=== PATIENT | female | born 1960 | race Caucasian/White ===

== ENCOUNTER 2018-11-14 07:37 | Day surgery (SDC) | payer OTHER ==
[2018-11-13 15:22] VITALS: BMI 34.7
[2018-11-14] MEDS ORDERED: BUPIVACAINE HCL/PF 2.5 MG/ML - 30 ML VIAL IJ ONE (07:50)
[2018-11-14] MEDS ORDERED: BUPIVACAINE HCL/PF 0.5% (5 MG/ML) 30 ML VIAL IJ ONE (07:50)
[2018-11-14] MEDS ORDERED: MIDAZOLAM HCL 2 MG/2 ML SINGLE DOSE VIAL ONE ×2 (07:50→09:48)
[2018-11-14] MEDS ORDERED: DEXAMETHASONE SOD PHOSPHATE/PF 10 MG/ML SDV ONE (07:51)
[2018-11-14] MEDS ORDERED: oxyCODONE HCL 5 MG TABLET PO PRN ×2 (08:07)
[2018-11-14] MEDS ORDERED: ONDANSETRON 4 MG/2 ML VIAL IVPUSH PRN (08:07)
[2018-11-14] MEDS ORDERED: LACTATED RINGERS SOLUTION 1,000 ML IV SCH (08:15)
--- NOTE | 2018-11-14 08:37 | OP ---
Operative Note - Note: Operative Date: 11/14/18 Pre-Operative Diagnosis: Left achilles tendon tear Operation: Left achilles tendon repair Post-Operative Diagnosis: Same as Pre-op Surgeon: Dima Yoder [employer] Professor: Luanne Narvaez Anesthesia: General Operative Report Dictated: Yes
[2018-11-14] MEDS ORDERED: DEXAMETHASONE SOD PHOSPHATE 4 MG/1 ML VIAL ONE (09:22)
[2018-11-14] MEDS ORDERED: ceFAZolin SODIUM 1 GM VIAL ONE (09:22)
[2018-11-14] MEDS ORDERED: ONDANSETRON 4 MG/2 ML VIAL ONE (09:22)
[2018-11-14] MEDS ORDERED: KETOROLAC TROMETHAMINE 30 MG/1 ML VIAL ONE (09:22)
[2018-11-14] MEDS ORDERED: LIDOCAINE HCL/PF 2% SDV 5ML VIAL ONE (09:22)
[2018-11-14] MEDS ORDERED: PROPOFOL 20 ML ONE ×3 (09:59→10:02)
[2018-11-14] MEDS ORDERED: ACETAMINOPHEN 1000 MG/100 ML VIAL (NON FORMULARY) IVPB ONE (11:00)
--- NOTE | 2018-11-14 14:04 | OP ---
DATE OF OPERATION: 11/14/2018 PREOPERATIVE DIAGNOSIS: Left Achilles tendon rupture. POSTOPERATIVE DIAGNOSIS: Left Achilles tendon rupture. PROCEDURE: Left Achilles tendon repair. SURGEON: Aylin Newberry MD DAIRY TECHNOLOGIST: VENANCIO Cantu, whose skillful assistance was necessary for the safe and timely performance of this procedure. Ms. Narvaez was able to provide limb positioning, retraction, assist in repairing the Achilles tendon. ANESTHESIA: Spinal plus regional. POSTOPERATIVE CONDITION: Stable. COMPLICATIONS: None. IMPLANTS: [employer] SpeedBridge kit with 4x SwiveLock anchors. INDICATIONS: This is a pleasant, 58-year-old female who had longstanding Achilles tendinopathy. She suffered a fall and felt a pop. She was found to have Achilles tendon rupture. Initially, nonoperative management was considered given that the vast majority of intrasubstance tears can be managed this way. After a thorough review of the literature and also speaking with experts in the field, the distal avulsions were excluded for most of these studies, and therefore, nonoperative care may not offer the same good outcome as surgical management; therefore, surgical care was recommended. Surgical risks were reviewed in detail including bleeding, infection, neurovascular injury, need for further surgery, postoperative pain and stiffness, re-rupture, skin breakdown needing plastic surgery coverage. We discussed medical risks such as heart attack, stroke, DVT, PE, and . We reviewed the lengthy recovery from surgery and postoperative rehabilitation protocol. We reviewed the use of perioperative antibiotic and DVT prophylaxis. I addressed all the patient's questions and concerns. She voiced understanding and elected to proceed. DESCRIPTION OF PROCEDURE: The patient was brought to the operating room where she was given spinal anesthetic. She was then placed in the prone position immediately after the spinal while still awake, taking care to pad all the bony prominences. The left lower extremity was prepped and draped in the usual sterile fashion. A preoperative dose of antibiotics was given, and the usual timeout procedure was performed. The incision was now planned out over the palpable gap in the Achilles and over the calcaneus. It was carried full thickness. Two full-thickness flaps were now elevated both medially and laterally to expose the calcaneal tuberosity. Small hematoma was evacuated. The Achilles had multiple enthesophytes present, and utilizing the rongeur as well as the high-speed martín, these were debrided down to a flat surface. Attention was then turned to the Achilles. It was debrided of any non-viable tissue. The tendon was then sutured utilizing a core suture. This was done with SutureTape. Attention was turned back to the calcaneal tuberosity. Here, 4 SwiveLock anchors were drilled and then tapped, utilizing the fluoroscopy to ensure proper anchor placement. Two anchors were placed more proximal and 2 were more distal. Two proximal anchors were now inserted. The Achilles tendon was then pulled down to its proper location, and the sutures were passed through in the appropriate locations. They were then placed into a crossing pattern. They were then loaded along with the core suture into the distal locking SwiveLock anchors. Both rows were inserted, reducing the Achilles down onto the anatomic footprint, then securing it in place firmly with a double-row type repair. At this point, the deep tissues approximated using 0 Vicryl. Subcutaneous tissue was approximated using 2-0 and 3-0 Vicryl. Skin was closed using vertical mattress 4-0 nylon sutures. Sterile dressings were placed. Patient was placed into a well-padded short-leg cast in resting plantar flexion. She was transferred to recovery room in stable condition. AYLIN NEWBERRY M.D. [id number]
[2018-11-14 14:30] VITALS: TEMP 97.3
[2018-11-14 14:49] VITALS: BP 124/76; PULSE 72
== END 2018-11-14 14:56 | disposition home or self-care (01) ==
LOC: FASU 07:37
PROVIDERS: ATTEND Orthopaedic Surgery Sports Medicine
PROC: 0LQP0ZZ Repair Left Lower Leg Tendon, Open Approach (ICD-10-PCS; principal; 2018-11-14 09:23)
DX: S86.012A Strain of left Achilles tendon, initial encounter (principal); X58.XXXA Exposure to other specified factors, initial encounter; Y93.9 Activity, unspecified; Y92.9 Unspecified place or not applicable
CPT/HCPCS: 73630-TC-LT; 82962; 94760; 97116-GP